=== PATIENT | female | born 1935 | race Asian ===

== ENCOUNTER 2021-02-26 14:32 | Inpatient (IN) | payer OTHER, SELFPAY ==
[~2021-02-26] VITALS: Ht 165.1 cm; Wt 60.3 kg
[2021-02-26 14:32] VITALS: BP 131/71
--- NOTE | 2021-02-26 14:46 | NUR ---
85 YO F BIBA FROM HOME C/O HYPERGLYCEMIA AND FATIGUE. IN ED, VSS. UNABLE TO ASSESS AO DUE TO LANGUAGE BARRIER. PERRL. HEART RATE NORMAL, REGULAR RHYTHM. CLEAR BREATH SOUNDS. PT POSITIONED COMFORTABLY IN BED WITH 2 SIDERAILS UP. ERMD MADE AWARE OF PT STATUS. PMH: HTN, DM, PANCREATITIS, ACUTE KIDNEY FAILURE, SEPSIS MEDS: SEE LIST NKA
[2021-02-26] MEDS ORDERED: AMOX500C25 PO (14:55)
[2021-02-26] MEDS ORDERED: DIPH50CA69 PO (14:55)
[2021-02-26] MEDS ORDERED: BACI1PAC6 TP (14:55)
[2021-02-26] MEDS ORDERED: LEVO5TAB12 PO (14:55)
[2021-02-26] MEDS ORDERED: METF1000 PO (14:55)
[2021-02-26] MEDS ORDERED: ALOG25TA PO (14:55)
[2021-02-26] MEDS ORDERED: ACAR100T1 PO (14:55)
[2021-02-26] MEDS ORDERED: AMLO10TA PO (14:55)
[2021-02-26] MEDS ORDERED: NAPR-54 PO (14:55)
[2021-02-26 15:15] LABS: BASOPHILS # (AUTO) 0.1 K/uL (0.00-0.22); BASOPHILS % (AUTO) 0.6 % (0.0-2.0); EOSINOPHILS # (AUTO) 0.5 K/uL (0-0.4); EOSINOPHILS % (AUTO) 5.4 % (0.0-4.0); HEMATOCRIT 33.2 % (36-48); HEMOGLOBIN 10.2 g/dL (12.0-16.0); LYMPHOCYTES # (AUTO) 1.4 K/uL (2.5-16.5); LYMPHOCYTES % (AUTO) 14.4 % (20.5-51.1); MEAN CORPUSCULAR HEMOGLOBIN 22 pg (27-31); MEAN CORPUSCULAR HGB CONC 31 g/dL (33-37); MEAN CORPUSCULAR VOLUME 69.9 fL (80-94); MONOCYTES # (AUTO) 0.6 K/uL (0.8-1.0); MONOCYTES % (AUTO) 5.9 % (1.7-9.3); NEUTROPHILS # (AUTO) 7.2 K/uL (1.8-7.7); NEUTROPHILS % (AUTO) 73.7 % (42.2-75.2); PLATELET COUNT (AUTO) 608 K/uL (140-450); RED BLOOD CELL COUNT(AUTO) 4.75 MIL/uL (4.20-5.40); RED CELL DISTRIBUTION WIDTH 17.7 % (11.6-13.7); WHITE BLOOD COUNT (AUTO) 9.8 K/uL (4.8-10.8)
--- NOTE | 2021-02-26 15:26 | NUR ---
VBG COLLECTED VIA IV START
[2021-02-26] MEDS ORDERED: NACL 0.9% 1,000 ML IV ONE (15:30)
[2021-02-26 15:36] LABS: ANION GAP 8.2 (8-16); ASPARTATE AMINOTRANSFERASE 11 U/L (15-37); CARBON DIOXIDE 28.1 mmol/L (21-32); CHLORIDE 104 mmol/L (98-107); CREATININE 0.9 mg/dL (0.6-1.3); GLUCOSE 372 mg/dL (74-106); POTASSIUM 5.3 mmol/L (3.5-5.1); SODIUM SERUM 135 mmol/L (136-145); TOTAL BILIRUBIN 0.3 mg/dL (0.0-1.0); UREA NITROGEN, BLOOD 23 mg/dL (7-18)
[2021-02-26] MEDS ORDERED: INSULIN REGULAR, HUMAN 100 UNIT/ML VIAL IV ONE (15:50)
[2021-02-26] MEDS ORDERED: BLOOD GLUCOSE MONITORING 1 DEV DEV FS ONE ×2 (15:55→17:00)
--- NOTE | 2021-02-26 16:12 | NUR ---
[facility]I GLUE MOUNTER OPERATOR: RECEIVED ORDER TO ARRANGE HOME HEALTH. FAXED TO [facility] AND SPOKE TO TAISHA RUFINO [phone] HE STATED THAT HIS [employer] [facility]IRE WILL ARRANGE HOME HEALTH [phone] [phone]. PROVIDED THE NUMBER FOR THE EMERGENCY DEPARTMENT Addendum: 02/26/21 at 1618 by Erin Kumar CM CHI GUARDADONER: NOTIFIED EMERGENCY DEPARTMENT Addendum: 03/01/21 at 1232 by Erin Kumar CM CHI GLUE MOUNTER OPERATOR: PT RECOMMENDS SNF FOR PATIENT. SPOKE TO PATIENTS SAMUEL HERRERA [phone] HE IS AGREEABLE TO HIS MOTHER GOING TO SNF FOR PT. Addendum: 03/01/21 at 1507 by Mitra June RN DC PLANNING: CALLED [facility] [phone] SPOKE WITH [place], UPDATED 'S CLINICAL AND DC PLAN . HE REQUESTED ALL PAPERWORK TO BE FAXED TO [phone] AND ONCE HE HAS THE ACCEPTING FACILITY WILL CALL BACK. HE PROVIDED THE AUTH # FOR HOSPITAL STAY. [id number] Addendum: 03/01/21 at 1606 by Erin Kumar CM DC GLUE MOUNTER OPERATOR: FOLLOWED UP WITH [facility]. AND SPOKE TO [facility] [phone]. SHE IS WORKING ON FINDING SNF FOR PATIENT Addendum: 03/02/21 at 1011 by Erin Kumar CM CHI ARTHUR: CALLED [facility] TO FOLLOW UP, NO ANSWER BUT LEFT VOICEMAIL. Addendum: 03/02/21 at 1013 by Erin Kumar CM CHI ARTHUR: SPOKE TO RUFINO HE IS GOING TO GET A HOLD OF DESIRE FOR ME. Addendum: 03/02/21 at 1123 by Erin Kumar CM CHI ARTHUR: FOLLOWED UP WITH RUFINO. HE SENT THE PACKET TO [facility], AND [facility] Addendum: 03/02/21 at 1136 by Erin Kumar CM CHI GLUE MOUNTER OPERATOR: CONTACTED BARBARA AT [facility], THEY ARE ABLE TO ACCEPT THIS PATIENT. SPOKE TO PATIENTS SAMUEL HERRERA [phone] TO NOTIFY HIM OF ACCEPTING FACILITY AND TO LET HIM KNOW THAT PLAN OF DISCHARGE IS FOR TODAY. Addendum: 03/02/21 at 1247 by Erin Kumar CM CHI GUARDADONER: [facility] Addendum: 03/02/21 at 1249 by Erin Kumar CM CHI ARTHUR: [facility] [address] [place] [id number] [address] Addendum: 03/02/21 at 1337 by Erin Kumar CM CHI ARTHUR: ARRANGED WILL CALL TRANSPORTATION WITH [facility] [phone]. Addendum: 03/02/21 at 1446 by Erin Kumar CM CHI ARTHUR: CONTACTED [facility] [phone]. THEY WILL BE CALLING THE FLOOR ONCE THEY HAVE AN AVAILABLE TRANSPORTATION. Addendum: 03/02/21 at 1532 by Erin Kumar CM DC GLUE MOUNTER OPERATOR: PATIENT WILL RECEIVED BLOOD TRANSFUSION BEFORE DC. PLACED TRANSPORTATION ON WILL CALL Addendum: 03/03/21 at 0850 by Erin Kumar CM DC GLUE MOUNTER OPERATOR: PATIENT WILL BE PICKED UP BY [facility] AT 10:30 AM. [facility]
--- NOTE | 2021-02-26 16:21 | NUR ---
insulin given sq route as per md verbal order
[2021-02-26] MEDS ORDERED: INSULIN REGULAR, HUMAN 100 UNIT/ML VIAL SUBQ ONE (16:25)
[2021-02-26] MEDS ORDERED: cefTRIAXone 1,000 MG VIAL ONE (17:21)
[2021-02-26 17:22] LABS: APPEARANCE,URINE CLOUDY (CLEAR); BILIRUBIN,URINE NEGATIVE (NEGATIVE); BLOOD, URINE 3+ (NEGATIVE); COLOR,URINE YELLOW (YELLOW); LEUKOCYTE ESTERASE ,URINE 2+ (NEGATIVE); NITRITE, URINE NEGATIVE (NEGATIVE); UGLUCOSE 3+ (NEGATIVE)
[2021-02-26 17:34] LABS: RBC,URINE >100 /HPF (0-5); WBC,URINE 60-80 /HPF (0-5)
--- NOTE | 2021-02-26 17:36 | NUR ---
AUGUSTIN CATHETER FR 16 INSERTED. DRAINED 60CC THICK, CURDY URINE. PT TOLERATED PROCEDURE WELL.
--- NOTE | 2021-02-26 17:48 | NUR ---
SARITA SWAB DONE. WALKED TO LAB
[2021-02-26] MEDS ORDERED: HYDROcodone/APAP 5/325 MG 1 TAB TAB PO PRN (17:55)
[2021-02-26] MEDS ORDERED: DEXTROSE 50% 50 ML SYR IVP PRN (17:55)
[2021-02-26] MEDS ORDERED: ONDANSETRON 4 MG/2 ML VIAL IVP PRN (17:55)
[2021-02-26] MEDS ORDERED: ACETAMINOPHEN 325 MG TAB PO PRN (17:55)
--- NOTE | 2021-02-26 19:19 | NUR ---
RECIVED REPORT FROM VENANCIO GILLESPIE, CONTINUATION OF CARE.
[2021-02-26] MEDS: NACL 0.9% 1,000 ML IV SCH (19:20)
--- NOTE | 2021-02-26 19:20 | NUR ---
Patient appears to be resting comfortably in bed. Vital Signs within normal limits. Respirations even and unlabored. IV INTACT, FC IN PLACE.
--- NOTE | 2021-02-26 19:24 | NUR ---
PATIENT ACCUCHECK 99. PER SLIDING SCALE NO INSULIN COVERAGE NEEDED.
--- NOTE | 2021-02-26 20:55 | NUR ---
RECEIVED TELEPHONE REPORT FROM ER NURSE JACOB. PT AWAKE ALERT ON ROOM AIR. LATEST BLOOD GLUCOSE 99. IV SITE RAC 20G PATENT INTACT INFUSING NS @80ML/HR. GENERALIZED DRY SCALY SKIN. AUGUSTIN CATH IN PLACE DRAINING YELLOW URINE, INSERTED BY ER. RAPID NEGATIVE. CC: HYPERGLYCEMIA, WEAKNESS. DX: UTI. HX: HTN, DM, HEAVENLY, PANCREATITIS, SEPSIS. WILL GET THE ROOM READY
--- NOTE | 2021-02-26 20:57 | NUR ---
Patient will be admitted to care of . Admited to MEDSURG. Will go to room 122B. Belongings list completed. Report to AYSE GILLESPIE.
[2021-02-26 21:15] VITALS: BP 128/52
--- NOTE | 2021-02-26 21:15 | NUR ---
PATIENT ARRIVED TO UNIT. ON MEDSURG, AWAKE ALERT ON ROOM AIR. NO S/S RESPIRATORY DISTRESS. NO C/O PAIN AT THIS TIME. IV SITE RAC 2OG PATENT INTACT INFUSING IVF ORDERED. AUGUSTIN CATH IN PLACE DRAINING YELLOW URINE. LUNGS CLEAR. BOWEL SOUNDS ACTIVE. SCRATCHES TO SKIN ON BILATERAL ARMS AND CHEST. ORIENTED TO ROOM AND HOSPITAL. SAFETY MEASURES IN PLACE. CALL LIGHT WITHIN REACH. WILL CONTINUE TO MONITOR, MRSA SWAB OBTAINED. VITAL SIGNS OBTAINED.
[2021-02-26] MEDS: BLOOD GLUCOSE MONITORING 1 DEV DEV FS SCH (21:21)
--- NOTE | 2021-02-26 21:35 | NUR ---
PRN D50 IVP GIVEN FOR BLOOD SUGAR 60, TOLERATED WELL. CALL LIGHT WITHIN REACH. WILL CONTINUE TO MONITOR
--- NOTE | 2021-02-26 23:30 | NUR ---
CALLED PATIENT'S SON, JAVIER. OBTAINED PATIENT INFORMATION DUE TO PATIENT UNABLE TO ANSWER ADMISSION QUESTIONS, APPEARS TIRED. ALSO, UPDATED SON ON PATIENT'S STATUS.
--- NOTE | 2021-02-26 23:45 | NUR ---
CLEANED CHANGED REPOSITIONED PATIENT. SCRATCHES AND REDNESS ALL OVER BODY NOTED. WOUNDS TO SACRAL AREA AND R GLUTEAL, BLEEDING. CLEANED AND APPLIED DRESSING, OFFLOADED PRESSURE. TOLERATED WELL. SAFETY MEASURES IN PLACE. CALL LIGHT WITHIN REACH. WILL CONTINUE TO MONITOR
--- NOTE | 2021-02-27 01:25 | NUR ---
PATIENT ASLEEP IN BED. RESPIRATIONS EVEN UNLABORED. NO DISTRESS NOTED. CALL LIGHT WITHIN REACH. WILL CONTINUE TO MONITOR
[2021-02-27 04:00] VITALS: BP 126/46
[2021-02-27] MEDS: BLOOD GLUCOSE MONITORING 1 DEV DEV FS SCH ×4 (06:07→21:45)
--- NOTE | 2021-02-27 06:07 | NUR ---
BLOOD GLUCOSE 123, NO INSULIN COVERAGE NEEDED. NO DISTRESS NOTED. CALL LIGHT WITHIN REACH. WILL CONTINUE TO MONITOR
[2021-02-27] MEDS: NACL 0.9% 1,000 ML IV SCH ×2 (06:25→12:33)
[2021-02-27 06:27] LABS: ALBUMIN 1.8 g/dL (3.4-5.0); ANION GAP 12.6 (8-16); ASPARTATE AMINOTRANSFERASE 15 U/L (15-37); CARBON DIOXIDE 23.8 mmol/L (21-32); CHLORIDE 109 mmol/L (98-107); CREATININE 0.6 mg/dL (0.6-1.3); GLUCOSE 136 mg/dL (74-106); MAGNESIUM 1.8 mg/dL (1.8-2.4); POTASSIUM 5.4 mmol/L (3.5-5.1); SODIUM SERUM 140 mmol/L (136-145); TOTAL BILIRUBIN 0.2 mg/dL (0.0-1.0); UREA NITROGEN, BLOOD 18 mg/dL (7-18)
[2021-02-27 06:50] LABS: BASOPHILS # (AUTO) 0.1 K/uL (0.00-0.22); BASOPHILS % (AUTO) 0.8 % (0.0-2.0); EOSINOPHILS # (AUTO) 0.9 K/uL (0-0.4); EOSINOPHILS % (AUTO) 10.4 % (0.0-4.0); HEMATOCRIT 33.7 % (36-48); HEMOGLOBIN 10.3 g/dL (12.0-16.0); LYMPHOCYTES # (AUTO) 1.9 K/uL (2.5-16.5); LYMPHOCYTES % (AUTO) 20.7 % (20.5-51.1); MEAN CORPUSCULAR HEMOGLOBIN 22 pg (27-31); MEAN CORPUSCULAR HGB CONC 31 g/dL (33-37); MEAN CORPUSCULAR VOLUME 70.8 fL (80-94); MONOCYTES # (AUTO) 0.6 K/uL (0.8-1.0); MONOCYTES % (AUTO) 6.4 % (1.7-9.3); NEUTROPHILS # (AUTO) 5.6 K/uL (1.8-7.7); NEUTROPHILS % (AUTO) 61.7 % (42.2-75.2); PLATELET COUNT (AUTO) 589 K/uL (140-450); RED BLOOD CELL COUNT(AUTO) 4.76 MIL/uL (4.20-5.40); RED CELL DISTRIBUTION WIDTH 17.4 % (11.6-13.7)
--- NOTE | 2021-02-27 07:10 | NUR ---
ENDORSED PATIENT TO DAY RN FOR CONTINUITY OF CARE. PATIENT IS IN STABLE CONDITION
--- NOTE | 2021-02-27 07:11 | NUR ---
RECEIVED REPORT FROM COSMETIC ACCOUNT COORDINATOR NURSE. PATIENT LYING DOWN IN BED SLEEPING, AROUSABLE BY VOICE. NO DISTRESS NOTED. IV SITE INTACT, PATENT, AND INFUSING IVF PER MD ORDERS. AUGUSTIN CATHETER IN PLACE. SAFETY MEASURES IN PLACE, CALL LIGHT WITHIN REACH. WILL CONTINUE OT MONITOR.
[2021-02-27 08:00] VITALS: BP 139/95
--- NOTE | 2021-02-27 08:21 | NUR ---
PATIENT HAS BEEN SCREENED AND CATEGORIZED HIGH NUTRITION RISK. PATIENT WILL BE SEEN WITHIN 1-2 DAYS OF ADMISSION. 02/27/21 02/28/[address]
[2021-02-27] MEDS: ASPIRIN 81 MG TAB.CHEW PO SCH (09:03)
[2021-02-27] MEDS: ENOXAPARIN 30 MG/0.3 ML SYR SUBQ SCH (09:05)
--- NOTE | 2021-02-27 09:30 | NUR ---
SCHEDULED MEDICATIONS DUE GIVEN. WILL CONTINUE TO MONITOR.
--- NOTE | 2021-02-27 10:46 | NUR ---
02/27/21 RD INITIAL ASSESSMENT COMPLETED PLEASE REFER TO NUTRITION ASSESSMENT UNDER CARE ACTIVITY FOR ESTIMATED NUTRITIONAL NEEDS. 1. CONTINUE CCHO 60 GM DIET TOLERATED 2. RECOMMEND VIT C AND ZINC X 21 DAYS FOR WOUND HEALING 3. RECOMMEND ENSURE BID FOR WOUND HEALING 4. RD TO FOLLOW-UP 2-3 DAYS, HIGH RISK [address]
[2021-02-27] MEDS ORDERED: ACARBOSE 50 MG TAB PO SCH (12:00)
[2021-02-27] MEDS: INSULIN LISPRO SLIDING SCALE 100 UNITS/ML VIAL SUBQ PRN ×2 (12:32→22:16)
--- NOTE | 2021-02-27 12:39 | NUR ---
SCHEDULED MEDICATIONS DUE GIVEN. WILL CONTINUE TO MONITOR.
[2021-02-27] MEDS: HYDRAGUARD CREAM TP SCH (12:40)
[2021-02-27 16:00] VITALS: BP 141/73
[2021-02-27] MEDS: metFORMIN 850 MG TAB PO SCH (17:40)
--- NOTE | 2021-02-27 17:41 | NUR ---
SCHEDULED MEDICATIONS DUE GIVEN. WILL CONTINUE TO MONITOR.
--- NOTE | 2021-02-27 19:15 | NUR ---
GAVE REPORT TO MANAGER SOFTWARE NURSE FOR CONTINUITY OF CARE. PATIENT IN STABLE CONDITION.
--- NOTE | 2021-02-27 19:20 | NUR ---
RECEIVED PT IN STABLE CONDITION FROM AM NURSE. PT IS MED SURG. AWAKE,ALERT AND ORIENTED X2. WITH PERIODS OF CONFUSION. BEDREST. WITH IVF INFUSING WELL ON THE RT AC G#20. CLEAR AND PATENT. HAS AUGUSTIN CATHETER DRAINING TO CLEAR YELLOW URINE. HAS SKIN DRYNESS, SCABS RIGHT INNER THIGH SCRATCHES WITH SOME BLEEDING NOTED. SACRAL AREA AND RT BUTTOCKS WITH INCONTINENT DERMATITIS. DRESSING IN PLACED. FREQ ROUNDS NEEDED. BED ON LOWEST POSITION. SIDE RAILS UP X2 . CALL LIGHT PLACED WITHIN REACH. WILL CONTINUE TO MONITOR.
[2021-02-27 21:15] VITALS: BP 125/66
--- NOTE | 2021-02-27 22:16 | NUR ---
PT VOMITED PREVIOUSLY TAKEN FOOD FROM DINNER. COMPLETE BED CHANGED. PT LOOKED COMFORTABLE AT THIS TIME. CLEANED AND KEPT DRY. WILL CONTINUE TO MONITOR.
--- NOTE | 2021-02-27 23:00 | NUR ---
MADE ROUNDS. PT AWAKE. NO S/S OF ANY DISCOMFORT NOTED.
--- NOTE | 2021-02-28 00:30 | NUR ---
CHECKED ON PT. AWAKE. REPOSITIONED FOR COMFORT.
[2021-02-28] MEDS: HYDRAGUARD CREAM TP SCH ×2 (01:24→12:48)
[2021-02-28] MEDS: NACL 0.9% 1,000 ML IV SCH ×3 (01:59→17:55)
--- NOTE | 2021-02-28 02:07 | NUR ---
PT VOMITED AGAIN . MEDICATED WITH ZOFRAN 4MG IVP ORDERED. GIVEN TO THE NEW IV ACCESS JUST STARTED ON RT WRIST G@24.
[2021-02-28 04:00] VITALS: BP 107/54
--- NOTE | 2021-02-28 04:00 | NUR ---
MADE ROUNDS. PT IS ASLEEP . VITAL SIGNS TAKEN. STABLE. WILL CONTINUE TO MONITOR.
[2021-02-28 05:12] LABS: BASOPHILS # (AUTO) 0.1 K/uL (0.00-0.22); BASOPHILS % (AUTO) 0.7 % (0.0-2.0); EOSINOPHILS # (AUTO) 0.3 K/uL (0-0.4); EOSINOPHILS % (AUTO) 2.9 % (0.0-4.0); HEMATOCRIT 29.2 % (36-48); LYMPHOCYTES # (AUTO) 1.7 K/uL (2.5-16.5); LYMPHOCYTES % (AUTO) 18.7 % (20.5-51.1); MEAN CORPUSCULAR HEMOGLOBIN 22 pg (27-31); MEAN CORPUSCULAR HGB CONC 31 g/dL (33-37); MEAN CORPUSCULAR VOLUME 70.7 fL (80-94); MONOCYTES # (AUTO) 0.4 K/uL (0.8-1.0); MONOCYTES % (AUTO) 4.8 % (1.7-9.3); NEUTROPHILS # (AUTO) 6.5 K/uL (1.8-7.7); NEUTROPHILS % (AUTO) 72.9 % (42.2-75.2); PLATELET COUNT (AUTO) 571 K/uL (140-450); RED BLOOD CELL COUNT(AUTO) 4.13 MIL/uL (4.20-5.40); WHITE BLOOD COUNT (AUTO) 8.9 K/uL (4.8-10.8)
[2021-02-28] MEDS: BLOOD GLUCOSE MONITORING 1 DEV DEV FS SCH ×4 (05:50→20:41)
[2021-02-28 05:59] LABS: ALBUMIN 1.7 g/dL (3.4-5.0); ANION GAP 12.8 (8-16); ASPARTATE AMINOTRANSFERASE 12 U/L (15-37); CARBON DIOXIDE 28.3 mmol/L (21-32); CHLORIDE 107 mmol/L (98-107); CREATININE 0.7 mg/dL (0.6-1.3); GLUCOSE 247 mg/dL (74-106); SODIUM SERUM 142 mmol/L (136-145); TOTAL BILIRUBIN 0.1 mg/dL (0.0-1.0); UREA NITROGEN, BLOOD 54 mg/dL (7-18)
[2021-02-28 06:14] LABS: POTASSIUM 6.1 mmol/L (3.5-5.1)
[2021-02-28] MEDS: INSULIN LISPRO SLIDING SCALE 100 UNITS/ML VIAL SUBQ PRN ×3 (06:15→20:43)
--- NOTE | 2021-02-28 06:15 | NUR ---
BLOOD SUGAR WAS CHECKED RESULT 256. INSULIN COVERAGE GIVEN SUBQ.
--- NOTE | 2021-02-28 06:19 | NUR ---
LAB CALLED FOR K LEVEL 6.[address] MESSER . WAITING FOR HIM TO CALL BACK.
--- NOTE | 2021-02-28 06:43 | NUR ---
DR. MESSER CALLED BACK. MADE AWARE ABOUT K LEVEL 6.1 WITH ORDER TO GIVE KAYEXALATE 20 GM PO ONCE
[2021-02-28] MEDS ORDERED: SODIUM POLYSTYRENE 15 GM/60 ML UDBTL PO ONE (06:45)
--- NOTE | 2021-02-28 07:20 | NUR ---
ENDORSED PT IN STABLE CONDITION TO AM NURSE FOR CONTINUITY OF CARE.
--- NOTE | 2021-02-28 07:25 | NUR ---
RECEIVED PATIENT FROM NIGHT NURSE. PATIENT IN BED AWAKE, RESPONDING TO NAME BY NODDING. RESP EVEN AND UNLABORED ON ROOM AIR. NO NOTED DISTRESS AT THIS TIME. RW 24G INFUSING NS 80ML/HR. FALL RISK IN PLACE. AUGUSTIN NOTED. PATIENT ENCOURAGED TO USE CALL LIGHT NEEDED. PATIENT NODDED. HOB ELEVATED, BED IN LOW POSITION. WILL CONTINUE TO MONITOR.
[2021-02-28 08:00] VITALS: BP 109/60
[2021-02-28] MEDS: amLODIPine 5 MG TAB PO SCH (09:00)
[2021-02-28] MEDS ORDERED: SODIUM POLYSTYRENE 15 GM/60 ML UDBTL ONE (09:42)
[2021-02-28] MEDS: ENOXAPARIN 30 MG/0.3 ML SYR SUBQ SCH (09:44)
[2021-02-28] MEDS: metFORMIN 850 MG TAB PO SCH ×2 (09:44→16:30)
[2021-02-28] MEDS: ASPIRIN 81 MG TAB.CHEW PO SCH (09:44)
--- NOTE | 2021-02-28 09:55 | NUR ---
PATIENT SITTING UP IN BED WATCHING TV. RESP EVEN AND UNLABORED ON ROOM AIR. DENIED OF PAIN AT THIS TIME. MORNING ROUTINE MEDICATIONS GIVEN. NORVASC HELD D/T LOW PARAMETERS. PATIENT ABLE TO STATE NAME AND RELATION TO SPOUSE. FAMILY AT WINDOW FOR VISIT. SKIN NOTED WITH DRYNESS AND DISCOLORATION TO SACRAL, NO OPEN AREA. SKIN TEARS NOTED FROM SCATCHING TO LOWER LEGS. PATIENT DENIED OF SCRATCHING THE AFFECTED AREAS. NO EDEMA NOTED. PLAN OF CARE DISCUSSED. PATIENT VERBALIZED UNDERSTANDING. HOB ELEVATED. CALL LIGHT WITHIN REACH. WILL CONTINUE TO MONITOR.
[2021-02-28] MEDS ORDERED: FUROSEMIDE 40 MG/4 ML VIAL IVP SCH (11:00)
--- NOTE | 2021-02-28 11:48 | NUR ---
BLOOD SUGAR 260, INSULIN COVERAGE PROVIDED PER SLIDING SCALE. PERSONAL CARE RENDERED. PATIENT TOLERATED WELL. MULTIPLE SCRATCHES NOTED WITH SKIN TEAR. PATIENT ENCOURAGED TO AVOID SCRATCHING, VERBALIZED UNDERSTANDING. CALL LIGHT WITHIN REACH. WILL CONTINUE TO MONITOR.
--- NOTE | 2021-02-28 12:50 | NUR ---
PATIENT SITTING UP IN BED EATING LUNCH. FAMILY AT WINDOW FOR VIDEO CHATS. PATIENT IN GOOD SPIRIT. NO NOTED DISTRESS AT THIS TIME. CALL LIGHT WITHIN REACH. WILL CONTINUE TO MONITOR.
--- NOTE | 2021-02-28 13:40 | NUR ---
PATIENT WENT TO RAD FOR CT PELVIC W/O CONTRAST. PATIENT LEFT IN STABLE CONDITION.
--- NOTE | 2021-02-28 14:10 | NUR ---
PATIENT CAME BACK FROM [facility] IN STABLE CONDITION. NO NOTED DISTRESS. AWAKE AND ALERT.
[2021-02-28 14:50] LABS: ANION GAP 12.9 (8-16); CARBON DIOXIDE 26.6 mmol/L (21-32); CHLORIDE 105 mmol/L (98-107); CREATININE 0.8 mg/dL (0.6-1.3); GLUCOSE 315 mg/dL (74-106); POTASSIUM 5.5 mmol/L (3.5-5.1); SODIUM SERUM 139 mmol/L (136-145); UREA NITROGEN, BLOOD 60 mg/dL (7-18)
[2021-02-28 16:00] VITALS: BP 111/63
--- NOTE | 2021-02-28 16:39 | NUR ---
BLOOD SUGAR 270, INSULIN PROVIDED PER SLIDING SCALE. PATIENT IN BED AWAKE AND ALERT. RESP EVEN AND UNLABORED ON ROOM AIR. NO NOTED DISTRESS AT THIS TIME. CALL LIGHT WITHIN REACH. WILL CONTINUE TO MONITOR.
--- NOTE | 2021-02-28 18:13 | NUR ---
PATIENT SITTING UP IN BED EATING DINNER. TOLERATING WELL. NO NOTED DISTRESS. RESP EVEN AND UNLABORED. FAMILY AT WINDOW FOR VISIT. ROUTINE MEDICATION GIVEN. CALL LIGHT WITHIN REACH. WILL CONTINUE TO MONITOR.
--- NOTE | 2021-02-28 19:17 | NUR ---
ENDORSED PATIENT TO NIGHT NURSE. PATIENT IN STABLE CONDITION.
--- NOTE | 2021-02-28 19:20 | NUR ---
RECEIVED PT IN STABLE CONDITION FROM AM NURSE. PT IS MED SURG. AWAKE,ALERT BUT CONFUSED. SMILE AND NOD WHEN TALKED TO. NO RESPIRATORY DISTRESS NOTED. IVF INFUSING WELL ON THE RT WRIST G #24. CLEAR ANF PATENT. AUGUSTIN CATHETER DRAINING WELL TO A SLIGHTLY CLOUDY URINE. SACRAL AREA AND RT BUTTOCKS WITH DRESSING . HAS MULTIPLE SCRATCHES ON THE EXTREMITIES. SKIN ARE DRY AND SCALY. FREQ ROUNDS NEEDED. BED ON LOW POSITION, SIDE RAILS UP X2. CALL LIGHT PLACED WITHIN REACH. WILL CONTINUE TO MONITOR.
--- NOTE | 2021-02-28 21:00 | NUR ---
FAMILY CAME AND SEEN PT ON THE WINDOWS.
--- NOTE | 2021-02-28 23:00 | NUR ---
MADE ROUNDS. PT IS ASLEEP. NO S/S OF ANY DISCOMFORT NOR DISTRESS NOTED.
--- NOTE | 2021-03-01 01:00 | NUR ---
PT HAS BEEN REPOSITIONED FOR COMFORT.
[2021-03-01] MEDS: HYDRAGUARD CREAM TP SCH ×2 (01:27→13:29)
--- NOTE | 2021-03-01 03:00 | NUR ---
CHECKED ON PT . SLEEPING. NO S/S OF DISCOMFORT NOTED.
[2021-03-01] MEDS: NACL 0.9% 1,000 ML IV SCH (05:30)
--- NOTE | 2021-03-01 06:00 | NUR ---
REPOSITIONED FOR COMFORT. NO BM NOTED. DRESSING ON THE SACRUM IN PLACED.
[2021-03-01] MEDS: BLOOD GLUCOSE MONITORING 1 DEV DEV FS SCH ×4 (06:10→20:47)
[2021-03-01 06:24] LABS: ALBUMIN 1.7 g/dL (3.4-5.0); ANION GAP 11.4 (8-16); ASPARTATE AMINOTRANSFERASE 14 U/L (15-37); CARBON DIOXIDE 27.9 mmol/L (21-32); CHLORIDE 106 mmol/L (98-107); CREATININE 0.6 mg/dL (0.6-1.3); GLUCOSE 138 mg/dL (74-106); POTASSIUM 4.3 mmol/L (3.5-5.1); SODIUM SERUM 141 mmol/L (136-145); TOTAL BILIRUBIN 0.1 mg/dL (0.0-1.0); UREA NITROGEN, BLOOD 43 mg/dL (7-18)
[2021-03-01 06:48] LABS: BASOPHILS # (AUTO) 0.1 K/uL (0.00-0.22); BASOPHILS % (AUTO) 0.5 % (0.0-2.0); EOSINOPHILS # (AUTO) 0.6 K/uL (0-0.4); EOSINOPHILS % (AUTO) 3.4 % (0.0-4.0); HEMATOCRIT 23.3 % (36-48); HEMOGLOBIN 7.3 g/dL (12.0-16.0); LYMPHOCYTES # (AUTO) 3.2 K/uL (2.5-16.5); MEAN CORPUSCULAR HEMOGLOBIN 22 pg (27-31); MEAN CORPUSCULAR HGB CONC 31 g/dL (33-37); MEAN CORPUSCULAR VOLUME 69.7 fL (80-94); MONOCYTES # (AUTO) 0.6 K/uL (0.8-1.0); MONOCYTES % (AUTO) 3.7 % (1.7-9.3); NEUTROPHILS # (AUTO) 12.2 K/uL (1.8-7.7); NEUTROPHILS % (AUTO) 73.4 % (42.2-75.2); PLATELET COUNT (AUTO) 529 K/uL (140-450); RED BLOOD CELL COUNT(AUTO) 3.35 MIL/uL (4.20-5.40); RED CELL DISTRIBUTION WIDTH 17.3 % (11.6-13.7); WHITE BLOOD COUNT (AUTO) 16.6 K/uL (4.8-10.8)
--- NOTE | 2021-03-01 07:20 | NUR ---
ENDORSED PT IN STABLE CONDITION TO AM NURSE.
--- NOTE | 2021-03-01 07:55 | NUR ---
PT REPORT RECEIVED FROM FILLING MACHINE TENDER RN. PT RESTING IN BED EYES CLOSED. EASY TO AROUSE. NO S/S OF DISTRESS AT THIS TIME. PT ABLE TO MAKE NEEDS KNOWN ALL SAFETY MEASURES ARE IN PLACE.
[2021-03-01] MEDS: metFORMIN 850 MG TAB PO SCH (08:40)
[2021-03-01] MEDS: FLUCONAZOLE 100 MG TAB PO SCH (08:40)
[2021-03-01] MEDS: ASPIRIN 81 MG TAB.CHEW PO SCH (08:41)
[2021-03-01] MEDS: ENOXAPARIN 30 MG/0.3 ML SYR SUBQ SCH (08:42)
[2021-03-01] MEDS: amLODIPine 5 MG TAB PO SCH (08:43)
--- NOTE | 2021-03-01 09:07 | NUR ---
MEDICATIONS GIVEN PER MD ORDER. PT EDUCATED AND VERBALIZED UNDERSTANDING. NO S/S OF DISTRESS AT THIS TIME.
--- NOTE | 2021-03-01 09:35 | NUR ---
WOUND CARE EVALUATION NOTE: SKIN ASSESSMENT DONE WITH THIS 85 Y/O PT. INITIAL DX OF HIGH BLOOD GLUCOSE AND WEAKNESS. PAST MEDICAL HX OF DM, HTN, PANCREATITIS, SEPSIS, KIDNEY DISEASE. PT. SKIN DRY AND SCRATCHING JAVIER TO TRUNK OF BODY AND LIMBS. PT. SWING HER ARMS AND LEGS AND TRY TO PUSH AWAY STAFF DURING ASSESSMENT. PT. IS INCONTINENT OF BOWEL, F/C PATENT WITH SMALL AMOUNT LIGHT YELLOW COLOR URINE OUTPUT OBSERVED. POC DISCUSSED WITH PRIMARY RN. INTEGUMENTARY: -SEVERE XEROSIS TO TRUNK OF BODY AND LIMBS, DRY FLAKY SKIN WITH SCRATCHING SARMIENTO. PARTIAL THICKNESS SKIN LOSS TO BACK 2X0.5 SUPERFICIAL DEPTH, AND RIGHT ANTERIOR THIGH 2.5X0.3CM SUPERFICIAL DEPTH, WOUND BEDS ARE PINK , MOIST, NO ODOR, NO S/S OF INFECTION, BILL-WOUND SKIN DRY SCALY. -INCONTINENT ASSOCIATED DERMATITIS TO SACRALCOCCYX AND EXTENDED TO RIGHT AND LEFT INNER BUTTOCKS, SKIN MOIST, RED AND AN EROSION TO RIGHT INNER BUTTOCK 2X1CM SUPERFICIAL DEPTH. ENTIRE IAD 7X4 CM RECOMMENDATIONS -APPLY HYDRAGUARD TO TRUNK OF BODY AND ALL LIMBS XEROSIS SKIN BID AND MILENA -CLEANSE PARTIAL THICKNESS SKIN LOSS TO BACK AND RIGHT ANTERIOR THIGH WITH NS, PAT DRY, APPLY ADAPTIC DRESSING,COVER WITH DRY DRESSING QD AND PRN IF SOILING -CLEANSE SACRALCOCCYX , RIGHT AND LEFT INNER BUTTOCKS WITH SOAP AND WATER, PAT DRY, APPLY THIN LAYER OF Z GUARD BID AND PRN IF SOILING, OFF LOADING AT ALL TIMES -KEEP SKIN CLEAN AND DRY AT ALL TIMES. -TURN AND REPOSITION PATIENT Q 2H -ASSESS AND MONITOR SKIN CONDITION DURING POSITION CHANGE -OFFLOAD BILATERAL HEELS BY PLACING PILLOWS UNDER CALVES AT ALL TIMES, UNLESS OTHERWISE CONTRAINDICATED -PRESSURE REDISTRIBUTION SURFACE THERAPY PLEASE CONTACT WOUND CARE NURSE FOR ANY QUESTION AND CHANGE OF WOUND CONDITION.
--- NOTE | 2021-03-01 10:30 | NUR ---
PT AT BEDSIDE
--- NOTE | 2021-03-01 11:39 | NUR ---
BG ASSESSED PER PROTOCOL. BG 214. INSULIN GIVEN PER SLIDING SCALE. PT EDUCATED AND VERBALIZED UNDERSTANDING. Addendum: 03/01/21 at 1148 by Rosalia Ritchie RN RN INSULIN VERIFIED WITH ANOTHER [facility]UEL
[2021-03-01] MEDS: INSULIN LISPRO SLIDING SCALE 100 UNITS/ML VIAL SUBQ PRN ×3 (11:44→20:47)
--- NOTE | 2021-03-01 13:00 | NUR ---
PT ASSESSED ATTEMPTED TO PUT CREAM ON PT REFUSED. REINFORCEMENT NEEDED. WILL TRY AGAIN LATER.
--- NOTE | 2021-03-01 14:28 | NUR ---
HYPOGUARD CREAM APPLIED PER ORDER. PT COMPLAINED OF DISCOMFORT. PT EDUCATED AND VERBALIZED UNDERSTANDING. REINFROCEMENT NEEDED. Z GUARD APPLIED TO BOTTOM.
[2021-03-01] MEDS ORDERED: FLUC100T1 PO (15:39)
--- NOTE | 2021-03-01 16:25 | NUR ---
BED BATH GIVEN TO PT. PT DENIES HYDRAGUARD CREAM, SACRAL FOAM REPLACED. Z GUARD APPLIED. PT EDUCATED IMPORTANCE OF PUTTING ON HYDRAGUARD CREAM .REINFORCEMENT NEEDED. PT ITCHING AND SCRATCHING PRN GIVEN PER MD ORDER.
--- NOTE | 2021-03-01 16:35 | NUR ---
PTS BG ASSESSED. 165. INSULIN COVERAGE NEEDED.
--- NOTE | 2021-03-01 16:49 | NUR ---
INSULIN GIVEN PER MD ORDER. VERIFIED WITH ANOTHER RN. PT EDUCATED AND VERBALIZED UNDERSTANDING. PT IN BED , REPOSITIONED KEPT DRY AND DENIES PAIN. NO S/S OF DISTRESS. CALL LIGHT IS WITHIN REACH.
--- NOTE | 2021-03-01 17:21 | NUR ---
PT GIVEN WATER FAMILY AT WINDOW.
--- NOTE | 2021-03-01 17:46 | NUR ---
PT GIVEN WATER, AND ASSISTED WITH PHONE SO THAT FAMILY AT THE WINDOW CAN COMMUNICATE WITH HER.
--- NOTE | 2021-03-01 18:18 | NUR ---
PT ASSISTED WITH MEAL TRAY SET UP. PT ABLE TO EAT INDEPENDENTLY DENIES N/V OR PAIN AT THIS TIME . PT TOLERATING WELL.
--- NOTE | 2021-03-01 19:14 | NUR ---
PT ENDORSED TO LOADING DOCK HAND RN FOR CONTINUITY OF CARE. REPORT DONE AT BEDSIDE. PT IS STABLE.
--- NOTE | 2021-03-01 19:18 | NUR ---
RECEIVED BEDSIDE REPORT FROM DAY SHIFT NURSE FOR CONTINUITY OF CARE. PT IS AWAKE AND ALERT. SITTING UP IN BED, EATING DINNER. PT FOLLOWS COMMANDS. ON RA WITH BREATHING UNLABORED. NO DISTRESS NOTED. MED SURG PT. PT IS ON BEDREST. WOUND ON SACRAL WITH DRY OPTIFOAM IN PLACE. SKIN IS WARM AND DRY. IV IS IN THE RIGHT WRIST 24 GAUGE SALINE LOCKED. FALL AND STANDARD PRECAUTIONS IN PLACE. PT IS STABLE. PLAN OF CARE DISCUSSED.
[2021-03-01 20:00] VITALS: BP 129/57
--- NOTE | 2021-03-01 20:47 | NUR ---
PT'S BS READING WAS 185 AND SHE WAS GIVEN HUMALOG INSULIN 2 UNITS PER SLIDING SCALE. EDUCATION WAS PROVIDED. PT NODDED YES FOR UNDERSTANDING EDUCATION. PT IS STABLE.
--- NOTE | 2021-03-01 22:54 | NUR ---
ROUNDED ON PT. SHE IS LYING IN SEMI FOWLERS POSITION, AWAKE. IV IS SALINE LOCKED ORDERED. BREATHING IS UNLABORED ON RA. PT DENIES PAIN AT THIS TIME. WATER WAS PROVIDED REQUESTED. WILL CONTINUE TO MONITOR.
[2021-03-02] MEDS: HYDRAGUARD CREAM TP SCH ×3 (00:18→13:52)
[2021-03-02] MEDS: Z-GUARD PASTE TP SCH ×2 (00:19→13:52)
--- NOTE | 2021-03-02 00:41 | NUR ---
PT IS SLEEPING. CHEST RISE AND FALL IS SYMMETRICAL. NO DISTRESS NOTED. IV IS INTACT WITH NO SIGNS OF INFILTRATION. BED IN THE LOWEST POSITION AND CALL LIGHT WITHIN REACH. PT IS STABLE.
--- NOTE | 2021-03-02 02:12 | NUR ---
PT WAS GIVEN WATER REQUESTED. NO DISTRESS NOTED. BREATHING IS UNLABORED. IV IS INTACT. PT IS STABLE. BACK TO SLEEP IN SEMI FOWLERS POSITION.
[2021-03-02 04:00] VITALS: BP 120/40
--- NOTE | 2021-03-02 04:02 | NUR ---
PT WAS REPOSITIONED ORDERED. PT IS STABLE AT THIS TIME. DENIES ANY PAIN. IV IS INTACT. BLANKET WAS PROVIDED FOR COMFORT. PT WAS ALSO PROVIDED WATER REQUESTED. WILL MONITOR.
[2021-03-02] MEDS: BLOOD GLUCOSE MONITORING 1 DEV DEV FS SCH ×4 (06:11→20:00)
[2021-03-02] MEDS: INSULIN LISPRO SLIDING SCALE 100 UNITS/ML VIAL SUBQ PRN ×3 (06:13→20:02)
--- NOTE | 2021-03-02 06:13 | NUR ---
PT'S BS READING IS 170. SHE WAS GIVEN INSULIN HUMALOG PER SLIDING SCALE, 2 UNITS. MEDICATION EDUCATION WAS PROVIDED AND PT NODDED VERBALIZING UNDERSTANDING.
--- NOTE | 2021-03-02 07:20 | NUR ---
ENDORSED PT TO DAY SHIFT NURSE FOR CONTINUITY OF CARE. PT IS STABLE AT THIS TIME. PLAN OF CARE DISCUSSED.
--- NOTE | 2021-03-02 07:47 | NUR ---
RECEIVED REPORT FORM PEER HEALTH PROMOTER NURSE. PATIENT ALERT AND ORIENTED X 3 . PATIENT IS AWAKE AT BED RESPIRATION EVEN AND UNLABORED AT ROOM AIR. IV LC 24 G AT RR. AUGUSTIN CATHETER NOTED WITH CLEAR URINE. BED IN LOWER POSITION. CALL LIGHT WITHIN REACH. WILL CONTINUE TO MONITOR PATIENT.
[2021-03-02 08:00] VITALS: BP 128/63
[2021-03-02] MEDS: amLODIPine 5 MG TAB PO SCH (08:50)
[2021-03-02] MEDS: FLUCONAZOLE 100 MG TAB PO SCH (08:50)
[2021-03-02] MEDS: ASPIRIN 81 MG TAB.CHEW PO SCH (08:50)
[2021-03-02] MEDS: ENOXAPARIN 30 MG/0.3 ML SYR SUBQ SCH (08:51)
--- NOTE | 2021-03-02 08:51 | NUR ---
PT WAS GIVEN THE SCHEDULED AM MEDICATIONS NOW, VIA ORAL AND SUBQ, PARAMETER CHECKED, TOLERATED AND WILL MONITOR PT.
[2021-03-02 10:10] LABS: BASOPHILS # (AUTO) 0.1 K/uL (0.00-0.22); BASOPHILS % (AUTO) 0.9 % (0.0-2.0); EOSINOPHILS # (AUTO) 0.8 K/uL (0-0.4); EOSINOPHILS % (AUTO) 6.9 % (0.0-4.0); HEMATOCRIT 21.4 % (36-48); LYMPHOCYTES # (AUTO) 2.2 K/uL (2.5-16.5); LYMPHOCYTES % (AUTO) 20.4 % (20.5-51.1); MEAN CORPUSCULAR HEMOGLOBIN 21 pg (27-31); MEAN CORPUSCULAR HGB CONC 31 g/dL (33-37); MEAN CORPUSCULAR VOLUME 69.8 fL (80-94); MONOCYTES # (AUTO) 0.6 K/uL (0.8-1.0); MONOCYTES % (AUTO) 5.1 % (1.7-9.3); NEUTROPHILS # (AUTO) 7.3 K/uL (1.8-7.7); NEUTROPHILS % (AUTO) 66.7 % (42.2-75.2); PLATELET COUNT (AUTO) 472 K/uL (140-450); RED BLOOD CELL COUNT(AUTO) 3.07 MIL/uL (4.20-5.40); RED CELL DISTRIBUTION WIDTH 16.7 % (11.6-13.7)
[2021-03-02 10:21] LABS: ANION GAP 7.6 (8-16); CARBON DIOXIDE 29.6 mmol/L (21-32); CHLORIDE 103 mmol/L (98-107); CREATININE 0.5 mg/dL (0.6-1.3); GLUCOSE 230 mg/dL (74-106); POTASSIUM 4.2 mmol/L (3.5-5.1); SODIUM SERUM 136 mmol/L (136-145); UREA NITROGEN, BLOOD 28 mg/dL (7-18)
[2021-03-02 10:43] LABS: HEMOGLOBIN 6.5 g/dL (12.0-16.0)
--- NOTE | 2021-03-02 10:45 | NUR ---
PAGED DR. SIU TO REPORT PT'S CRITICAL LAB VALUE FOR HGB OF 6.5, HCT IS 21.4, AWAITING MD CALL BACK.
--- NOTE | 2021-03-02 13:48 | NUR ---
03/02/21 RD FOLLOW UP COMPLETED PLEASE REFER TO NUTRITION ASSESSMENT UNDER CARE ACTIVITY FOR ESTIMATED NUTRITIONAL NEEDS. 1. RECOMMEND MECHANICAL SOFT CCHO 60 GM DIET TOLERATED 2. WHEN MEDICALLY APPLICABLE DISCONTINUE K2GM DIETARY RESTRICTION 3. CONTINUE GLUCERNA BID 4. ENCOURAGE PO INTAKE >75% 5. RD TO FOLLOW-UP 3-5 DAYS, MODERATE RISK YULIYA AMAYA, RD
--- NOTE | 2021-03-02 13:52 | NUR ---
PT WAS REPOSITIONED AND CLEANED AND WOUND ASSESSMENT AND REINFORCEMENT WERE DONE TO PT.
--- NOTE | 2021-03-02 13:58 | NUR ---
CALLED AND SPOKE TO THE PT'S SON, JAVIER/KIRK NATARAJAN AND INFORMED SON THAT PT'S HGB IS 6.4 AND IS NEEDING TO TRANSFUSE I UNIT PACKED RED BLOOD CELLS, SON GAVE A TELEPHONE CONSENT FOR BLOOD TRANSFUSION NOW WITNESSED BY CHARGE NURSE SOLE AND DR. SIU SPOKE TO SON WELL.
--- NOTE | 2021-03-02 14:00 | NUR ---
DR. SIU SPOKE TO PT'S SON AND OBTAINED A CONSENT FOR A BLOOD TRANSFUSION OF I UNIT PRBC, RISKS AND BENEFITS WERE DISCUSSED AND SON VERBALIZED UNDERSTANDING.
[2021-03-02] MEDS ORDERED: DIPH25SG5 PO (14:08)
[2021-03-02] MEDS ORDERED: AMLO-3 PO (14:08)
[2021-03-02] MEDS ORDERED: FLUC100T6 PO (14:08)
[2021-03-02] MEDS ORDERED: ASPI81CT95 PO (14:08)
--- NOTE | 2021-03-02 19:16 | NUR ---
CALLED [facility] AT [phone], AND GAVE REPORT TO DEIDRE MCDERMOTT, REGARDING THE CARE MANAGEMENT DONE TO PT AND PT WILL BE PLACE IN RM 225-B VIA [facility] AND ACUTE CARE OCCUPATIONAL THERAPIST TIME WILL BE WILL CALL..
--- NOTE | 2021-03-02 19:25 | NUR ---
RECEIVED BEDSIDE REPORT FROM DAY SHIFT NURSE FOR CONTINUITY OF CARE. PT IS AWAKE AND ALERT. RESPONDS TO QUESTIONS APPROPRIATELY WITH NODDING. FOLLOWS COMMANDS. ON RA WITH BREATHING UNLABORED. AUGUSTIN CATH IN PLACE WITH CLEAR, YELLOW URINE PRESENT. PT HAS SWELLING ON THE FEET BILATERALLY. SCRATCHES ALL OVER BODY FROM PT SCRATCHING SELF. SACRAL EXCORIATION WITH DRY OPTIFOAM IN PLACE. SKIN IS WARM AND DRY. IV IS IN THE LEFT WRIST 22 GAUGE WITH BLOOD TRANSFUSION INFUSING. RIGHT WRIST 24 GAUGE SALINE LOCKED. PT IS STABLE AT THIS TIME. PLAN OF CARE DISCUSSED. STANDARD AND FALL PRECAUTIONS IN PLACE.
--- NOTE | 2021-03-02 19:25 | NUR ---
ENDORSED PATIENT TO MAIL READER NURSE FOR CONTINUE FO CARE . PATIENT SLEEPING ON BED. NO S/S OF RESPIRATORY DISTRESS NOTED. BED IN LOWER PORTION . CALL LIGHT WITHIN REACH. PATIENT IS IN STABLE CONDITION AT THIS TIME.
[2021-03-02 20:00] VITALS: BP 119/57
--- NOTE | 2021-03-02 21:10 | NUR ---
BLOOD TRANSFUSION IS DONE. NS FLUIDS ARE NOW INFUSING TO FLUSH IV. PT DENIES ANY PAIN OR DISTRESS. BREATHING IS UNLABORED. PT IS AWAKE AND ALERT. WILL CONTINUE TO MONITOR.
--- NOTE | 2021-03-02 21:20 | NUR ---
VS ARE STABLE TEN MINUTES AFTER TRANSFUSION HAS ENDED. BP IS 121/63, HR 84, TEMP 97.6, RR 20, AND PT DENIES PAIN.
--- NOTE | 2021-03-02 21:30 | NUR ---
CALLED WILL CALL TRANSPORT FOR CARE TO [facility] REPAIRER THE PT. HAL STATED THAT THERE WAS NO ARRANGEMENT FOR TRANSPORT. THEY WILL CALL BACK TO GIVE UPDATE IF THEY ARE ABLE TO TRANSPORT PT. WILL WAIT FOR CALL BACK.
--- NOTE | 2021-03-02 21:49 | NUR ---
[facility]; PHONE NUMBER [phone].
--- NOTE | 2021-03-02 21:52 | NUR ---
ABDIEL KING MGR UPDATED ON [facility] LOOKING FOR AVAILABLE TRANSPORT FOR PT TONIGHT, WILL WAIT FOR [facility] CALL BACK, ANGELICA GILLESPIE OF [facility] MADE AWARE.
--- NOTE | 2021-03-02 22:05 | NUR ---
CHARGE NURSE, YEFRI GILLESPIE, CALLED [facility] AND INFORMED THEM THAT WE ARE WAITING FOR TRANSPORT TO BE AVAILABLE TO [employer] DEMON[employer]ATOR THE PT. THEY SAID THEY CAN ACCEPT THE PT AT ANY TIME. MANUELITO IS THE NAME OF THE REP THAT SPOKE TO DENIS ASIF RN.
--- NOTE | 2021-03-02 22:19 | NUR ---
SPOKE TO JAVIER, SON, ON THE PHONE AND UPDATED HIM ON THE TRANSPORTATION SITUATION. INFORMED HIM THAT SHE COULD BE TRANSFERRED AT SOME POINT TONIGHT OR TOMORROW. I WILL GIVE HIM A CALL BACK WHEN THE PT IS TRANSFERRED TO [facility].
--- NOTE | 2021-03-02 22:30 | NUR ---
CHARGE NURSE SPOKE TO HAL FROM [facility]SP[facility] AND HE INFORMED HIM THAT THERE IS NOT AVAILABLE TRANSPORT FOR THE NIGHT. THE PT WILL BE STAYING THE NIGHT HERE AND TRANSPORTATION WILL BE ARRANGED BY [facility] TOMORROW.
--- NOTE | 2021-03-02 22:32 | NUR ---
RECEIVED CALL BACK FROM [facility], NO TRANSPORT AVAILABLE ADRIANO, PRIMARY RN NGOC MADE AWARE.
--- NOTE | 2021-03-02 23:30 | NUR ---
PT IS SITTING UP IN HIGH FOWLERS POSITION. BREATHING IS UNLABORED ON RA. NO RESPIRATORY DISTRESS NOTED. BEDSIDE TABLE WITHIN REACH. IV'S ARE INTACT. PT IS STABLE.
--- NOTE | 2021-03-03 01:00 | NUR ---
PT'S LINENS WERE CHANGED AND PT WAS REPOSITIONED. Z GUARD WAS APPLIED TO SACRAL REGION AND NEW DRESSING APPLIED. HYDRAGAURD WAS APPLIED TO THE EXTREMITIES THERE IS VISIBLE DRY/ FLAKEY SKIN. PT TOLERATED THIS WELL. PT IS BACK TO SLEEP.
--- NOTE | 2021-03-03 01:30 | NUR ---
PT IS SLEEPING. NO DISTRESS NOTED. NO RESPIRATORY DISTRESS. NO SOB OR PAINT NOTED. WILL CONTINUE TO MONITOR.
[2021-03-03] MEDS: HYDRAGUARD CREAM TP SCH (01:46)
[2021-03-03] MEDS: Z-GUARD PASTE TP SCH (01:46)
--- NOTE | 2021-03-03 03:30 | NUR ---
PT IS AWAKE AND ALERT. NODS TO YES OR NO QUESTIONS. PT DENIES ANY PAIN. IV'S ARE FLUSHED AND PATENT. AUGUSTIN CATH IS COLLECTING CLEAR, YELLOW URINE. CALL LIGHT IS WITHIN REACH. WILL MONITOR.
[2021-03-03 04:00] VITALS: BP 123/66
[2021-03-03] MEDS: INSULIN LISPRO SLIDING SCALE 100 UNITS/ML VIAL SUBQ PRN (05:39)
[2021-03-03] MEDS: BLOOD GLUCOSE MONITORING 1 DEV DEV FS SCH (05:39)
--- NOTE | 2021-03-03 05:39 | NUR ---
BS READING WAS 165. PT WAS GIVEN HUMALOG INSULIN PER SLIDING SCALE, 2 UNITS. MEDICATION EDUCATION WAS PROVIDED AND PT VERBALIZED UNDERSTANDING.
--- NOTE | 2021-03-03 07:20 | NUR ---
ENDORSED PT TO DAY SHIFT NURSE FOR CONTINUITY OF CARE. PT IS STABLE AT THIS TIME. PLAN OF CARE DISCUSSED.
--- NOTE | 2021-03-03 07:25 | NUR ---
RECEIVED BEDSIDE ENDORSEMENT FROM [facility] NURSE FOR CONTINUITY OF CARE.
--- NOTE | 2021-03-03 09:45 | NUR ---
PATIENT IS DISCHARGED. PATIENT PICKED UP BY TRANSPORT UNIT. CALLED [facility] AND GAVE REPORT TO FADUMO GILLESPIE. PATIENT DISCHARGED W/ AUGUSTIN CATHETER PER REPORT. REMOVED IV LINES AND ID BANDS. PATIENT BELONGINGS PLACED IN BAG, PATIENT CLEANED AND GIVEN CLEAN GOWN/SOCKS. PATIENT IS STABLE.
[2021-03-03 09:46] VITALS: BP 138/72
== END 2021-03-03 10:05 | DRG 637 ==
LOC: MED 14:32 → MTU 17:57
PROVIDERS: ADMIT Internal Medicine; ATTEND Internal Medicine
PROC: 30233N1 Transfusion of Nonautologous Red Blood Cells into Peripheral Vein, Percutaneous Approach (ICD-10-PCS; principal; 2021-03-02)
DX: E11.65 Type 2 diabetes mellitus with hyperglycemia (principal); G93.41 Metabolic encephalopathy; N39.0 Urinary tract infection, site not specified; N17.9 Acute kidney failure, unspecified; I10 Essential (primary) hypertension; E87.5 Hyperkalemia; R58 Hemorrhage, not elsewhere classified; D64.9 Anemia, unspecified; Z20.822 Contact with and (suspected) exposure to COVID-19; Z79.84 Long term (current) use of oral hypoglycemic drugs; Z79.899 Other long term (current) drug therapy
CPT/HCPCS: 36415; 71045; 72170; 72192; 80048; 80053; 81001; 82009; 82550; 82803; 82948; 83036; 83735; 85025; 86886; 86900; 86901; 86920; 87081; 87086; 93005; 96361; 96365; 96372; 97110; 97112; 97163-GP; 99285; J0696; J1650; J1815; J1940; J2405; J7030; J7060; P9016; Q0163